=== PATIENT | male | born 1960 ===

== ENCOUNTER 2017-06-05 23:23 | Emergency (ER) | payer SELFPAY ==
[2017-06-05 23:33] VITALS: RESP 18
[2017-06-06 00:10] LABS: BASO # 0.1 K/uL (0.0-0.2); BASO % 1.4 % (0.0-2.0); EOS # 0.2 K/uL (0.0-0.7); EOS % 3.6 % (0.0-4.0); HEMOGLOBIN 14.3 g/dL (12.0-18.0); LYMPH # 1.6 K/uL (1.0-4.3); LYMPH % 37.2 % (20.0-40.0); MEAN CELL VOLUME 101.4 fl (80.0-94.0); MEAN CORPUSCULAR HEMOGLOBIN 33.2 pg (27.0-31.0); MEAN CORPUSCULAR HGB CONC 32.7 g/dL (33.0-37.0); MEAN PLATELET VOLUME 7.8 fl (7.2-11.7); MONO # 0.4 K/uL (0.0-0.8); MONO % 9.3 % (0.0-10.0); NEUT % 48.5 % (50.0-75.0); NRBC % 0.2 % (0.0-0.0); RBC 4.31 Mil/uL (4.40-5.90); RED CELL DISTRIBUTION WIDTH 14.1 % (11.5-14.5); WHITE BLOOD COUNT 4.2 K/uL (4.8-10.8)
[2017-06-06 00:33] LABS: BLOOD UREA NITROGEN 8 mg/dl (9-20); CALCIUM 9.5 mg/dL (8.4-10.2)
[2017-06-06 00:35] LABS: GFR AFRICAN-AMERICAN > 60; GFR NON-AFRICAN AMERICAN > 60
--- NOTE | 2017-06-06 02:29 | ED PDOC ---
HPI: Psych/Substance Abuse Time Seen by Provider: 06/05/17 23:41 Chief Complaint (Nursing): Alcohol Ingestion Chief Complaint (Provider): EtOH Intoxication ED Caveat: Intoxicated History Per: EMS History/Exam Limitations: intoxication Suicide/Self Injury Attempted (Context): None Modifying Factor(s): Alcohol Additional Complaint(s): 56 year old male brought in by EMS presents to ED due to alcohol intoxication and has an unknown past medical history. Patient was found asleep in front of a restaurant. Due to patient's condition, H&P is limited. PCP: Quique Birmingham Past Medical History Reviewed: Nursing Documentation, Vital Signs Vital Signs: Last Vital Signs Temp 97.5 F L 06/05/17 23:31 Pulse 73 06/05/17 23:31 Resp 18 06/05/17 23:31 BP 146/85 06/05/17 23:31 Pulse Ox 100 06/05/17 23:31 - Family History Family History: States: Unknown Family Hx - Allergies Allergies/Adverse Reactions: Allergies Allergy/AdvReac Type Severity Reaction Status Date / Time No Known Allergies Allergy Verified 06/05/17 23:31 Review of Systems Review Of Systems: ROS cannot be obtained secondary to pt's inabilty to answer questions. (Patient is currently intoxicated.) Physical Exam - Reviewed Nursing Documentation Reviewed: Yes Vital Signs Reviewed: Yes - Physical Exam Appears: Positive for: Non-toxic, No Acute Distress (alcohol on breath) Head Exam: Positive for: ATRAUMATIC Skin: Positive for: Normal Color, Warm, Dry Cardiovascular/Chest: Positive for: Regular Rate, Rhythm. Negative for: Bradycardia Respiratory: Positive for: Normal Breath Sounds. Negative for: Respiratory Distress Gastrointestinal/Abdominal: Positive for: Normal Exam. Negative for: Tenderness Extremity: Positive for: Normal ROM. Negative for: Deformity Neurologic/Psych: Positive for: Gait (unsteady). Negative for: Alert, Oriented , Motor/Sensory Deficits - Laboratory Results Result Diagrams: 06/06/17 00:02 06/06/17 00:02 - ECG O2 Sat by Pulse Oximetry: 100 (RA) Pulse Ox Interpretation: Normal Medical Decision Making Medical Decision Makin Initial impression: alcohol intoxication Initial plan: * EtOH serum * Labs * UDrug screen * Accucheck At 6AM pt is AAO x3 and has steady gait with fluent speech. stable for discharge home Scribe Attestation: Documented by Jazzmine Bui acting as a scribe for Gee Cooley MD. DO Scribe Attestation: All medical record entries made by the Scribe were at my direction and personally dictated by me. I have reviewed the chart and agree that the record accurately reflects my personal performance of the history, physical exam, medical decision making, and the department course for this patient. I have also personally directed, reviewed, and agree with the discharge instructions and disposition. Disposition - Clinical Impression Clinical Impression: Alcohol abuse with intoxication - Disposition Referrals: Quique Birmingham MD [Primary Care Provider] - Disposition: Routine/Home Disposition Time: 06:00 Condition: STABLE Instructions: Alcohol Abuse and Alcoholism (DC) Forms: [facility] (Sinhala)
[2017-06-06 05:47] VITALS: BP 118/71; PULSE 75; TEMP 98.2
[2017-06-09 00:07] VITALS: O2SAT 100
== END 2017-06-06 06:25 | disposition home or self-care (01) ==
LOC: H.ER 23:23
DX: F10.129 Alcohol abuse with intoxication, unspecified (principal)
CPT/HCPCS: 80048; 82948; 85025; 99283; G0480